=== PATIENT | male | born 1960 | race Caucasian/White ===

== ENCOUNTER 2022-10-28 15:15 | Emergency (ER) | payer OTHER ==
[~2022-10-28] VITALS: Ht 175.3 cm; Wt 139.0 kg
[2022-10-28] MEDS ORDERED: MORPHINE SULFATE INJ 2 MG/ml SYRG IM ONE (16:15)
[2022-10-28] MEDS ORDERED: ONDANSETRON ODT 4 MG TAB PO ONE (16:15)
[2022-10-28] MEDS ORDERED: TRAM-297 PO (16:23)
[2022-10-28] MEDS ORDERED: BACL10TA PO (16:23)
[2022-10-28 19:06] VITALS: BP 110/71
== END 2022-10-28 19:09 | disposition home or self-care (01) ==
LOC: ER 15:15
DX: G89.29 Other chronic pain (principal); M54.59 Other low back pain; J44.9 Chronic obstructive pulmonary disease, unspecified; E11.9 Type 2 diabetes mellitus without complications; I10 Essential (primary) hypertension
CPT/HCPCS: 96372; 99283; J2270; Q0162

== ENCOUNTER 2022-12-22 06:51 | Inpatient (IN) | payer OTHER ==
[~2022-12-22] VITALS: Ht 175.3 cm; Wt 125.0 kg
[~2022-12-22 06:51] MED LIST: BACL10TA PO; TRAM-297 PO
[2022-12-22 07:52] LABS: Basophils # (auto) 0 10 ^3/uL (0-0.2); Basophils % (auto) 0.2 % (0.0-2.0); Eosinophils # (auto) 0.3 10 ^3/uL (0-0.8); Hematocrit 36.5 % (41.0-53.0); Hemoglobin 11.6 g/dL (13.5-17.5); Lymphocytes # (auto) 4.5 10 ^3/uL (0.4-5.4); Lymphocytes % (auto) 32.5 % (10.0-50.0); Mean Corpuscular Hemoglobin 27.4 pg (28.0-32.0); Mean Corpuscular Hgb Conc. 31.8 g/dL (32.0-36.0); Monocytes # (auto) 0.7 10 ^3/uL (0-1.3); Monocytes % (auto) 5.1 % (0.0-12.0); Neutrophils # (auto) 8.3 10 ^3/uL (1.6-8.6); Neutrophils % (auto) 60.2 % (37.0-80.0); Red Blood Cells 4.25 10^6/uL (4.5-5.90); Red Cell Distribution Width 17.2 % (11.8-14.3); White Blood Cell 13.7 10^3/uL (4.4-10.8)
[2022-12-22 08:02] LABS: Albumin 2.8 g/dL (3.4-5.0); Calcium 9.3 mg/dL (8.5-10.1); Magnesium 2.2 mg/dL (1.6-2.6); Potassium 3.5 mmol/L (3.5-5.1)
[2022-12-22 08:05] LABS: BUN/Creatinine Ratio 16.2 (10.0-20.0); Bilirubin, Total 0.4 mg/dL (0.2-1.0); Total Protein 8.2 g/dL (6.4-8.2)
[2022-12-22 08:35] LABS: INR 1.06 (0.9-1.15); Partial Thromboplastin Time 28.6 SEC (24.5-34.5)
[2022-12-22] MEDS ORDERED: SALINE 0.65 % NASAL SPRAY 45ML BOTTLE EACHNOSTRI ONE (09:15)
[2022-12-22] MEDS ORDERED: ASPirin 325 MG TAB PO ONE (09:45)
[2022-12-22 10:37] LABS: Urine Bacteria FEW /hpf (None Seen); Urine Blood Negative /uL (Negative); Urine Specific Gravity 1.013 (1.001-1.035); Urine WBC 32 /hpf (0 - 3)
[2022-12-22 10:53] LABS: Alcohol, Urine < 3.0 mg/dL (0-10); Barbiturate Scree,Urine NEGATIVE (NEGATIVE); Cannabinoid Screen, Urine POSITIVE (NEGATIVE)
[2022-12-22 11:00] LABS: Amphetamine Screen, Urine NEGATIVE (NEGATIVE); Benzodiazephine Screen, Urine NEGATIVE (NEGATIVE); Cocaine Screen, Urine NEGATIVE (NEGATIVE); Opiate Scree,Urine NEGATIVE (NEGATIVE); Phencyclidine Screen, Urine NEGATIVE (NEGATIVE)
[2022-12-22] MEDS ORDERED: ATORVASTATIN 20 MG TAB PO ONE (16:15)
[2022-12-22] MEDS ORDERED: DEXTROSE (50%) 50ML SYRG IV PRN (16:15)
[2022-12-22] MEDS ORDERED: LORazepam 2MG/ML-1ML VIAL IV ONE (16:15)
[2022-12-22] MEDS: InsuLIN REG 1unit/0.01ml Soln (100units/ml) SC SCH ×2 (17:03→22:12)
[2022-12-22] MEDS: ACCU-CHEK COMFORT CURVE STRIP VI SCH ×2 (17:13→22:07)
[2022-12-22] MEDS ORDERED: NITROGLYCERIN 0.4 MG SL TAB SL PRN (18:30)
[2022-12-22] MEDS ORDERED: MORPHINE SULFATE INJ 2 MG/ml SYRG IV PRN (18:30)
[2022-12-22] MEDS ORDERED: DOCUSATE SOD 100 MG CAP PO PRN (18:30)
[2022-12-22] MEDS ORDERED: ACETAMINOPHEN 325 MG TAB PO PRN (18:30)
[2022-12-22] MEDS: SODIUM CHLORIDE 0.9% 1,000 ML IV SCH (21:15)
[2022-12-22 22:06] LABS: Cholesterol 116 mg/dL (< 200)
[2022-12-22 22:10] LABS: HDL Cholesterol 37 mg/dL (40-59); LDL Cholesterol 70 mg/dL (< 100); Triglycerides 77 mg/dL (< 150)
[2022-12-22] MEDS: ATORVASTATIN 20 MG TAB PO SCH (22:11)
[2022-12-23] MEDS: ACCU-CHEK COMFORT CURVE STRIP VI SCH ×8 (06:00→22:00)
[2022-12-23] MEDS: InsuLIN REG 1unit/0.01ml Soln (100units/ml) SC SCH ×4 (06:45→21:50)
[2022-12-23] MEDS: SODIUM CHLORIDE 0.9% 1,000 ML IV SCH (08:48)
[2022-12-23] MEDS: ENOXAPARIN SOD 40 MG/0.4 ML SYRINGE SC SCH (10:12)
[2022-12-23] MEDS: ASPirin 81 mg TAB PO SCH (10:12)
[2022-12-23 14:09] VITALS: BP 128/59
[2022-12-23] MEDS ORDERED: ASPI-325 PO (14:09)
[2022-12-23] MEDS ORDERED: ATOR20TA50 PO (14:09)
[2022-12-23] MEDS ORDERED: ENO40SY SC (14:09)
[2022-12-23] MEDS ORDERED: INSREGI SC (14:09)
[2022-12-23] MEDS ORDERED: ATO40T PO (16:23)
[2022-12-23] MEDS ORDERED: ASPI-543 PO (16:23)
[2022-12-23] MEDS ORDERED: TAMS0.4C36 PO (16:24)
[2022-12-23] MEDS ORDERED: INSU70IN3 SC (16:24)
[2022-12-23] MEDS ORDERED: LOSA100T25 (16:25)
[2022-12-23] MEDS ORDERED: GABA-1250 PO (16:25)
[2022-12-23 16:39] VITALS: BP 128/59
[2022-12-23 17:00] VITALS: BP 104/57
[2022-12-23] MEDS ORDERED: FUROSEMIDE 40 MG/4 ML VIAL IV ONE (17:45)
[2022-12-23] MEDS: ATORVASTATIN 20 MG TAB PO SCH (21:20)
[2022-12-23 23:15] VITALS: BP 159/95
[2022-12-23] MEDS ORDERED: HALOPERIDOL LACTATE 5 MG/ML INJ VIAL IM ONE (23:30)
[2022-12-23] MEDS ORDERED: ONDANSETRON HCL 4 MG/2 ML VIAL IV PRN (23:54)
[2022-12-24] VITALS (19 sets, daily range): BP systolic 117–168; BP diastolic 34–102
[2022-12-24] MEDS: SODIUM CHLORIDE 0.9% 1,000 ML IV SCH ×2 (00:14→13:24)
[2022-12-24] MEDS: MORPHINE SULFATE INJ 2 MG/ml SYRG IV PRN ×4 (01:55→22:11)
[2022-12-24] MEDS: ACCU-CHEK COMFORT CURVE STRIP VI SCH ×9 (05:37→23:27)
[2022-12-24] MEDS: InsuLIN REG 1unit/0.01ml Soln (100units/ml) SC SCH ×4 (06:15→21:57)
[2022-12-24] MEDS: ASPirin 81 mg TAB PO SCH (10:00)
[2022-12-24] MEDS: ENOXAPARIN SOD 40 MG/0.4 ML SYRINGE SC SCH ×2 (10:39→21:28)
[2022-12-24] MEDS ORDERED: LORazepam 2MG/ML-1ML VIAL IV ONE (12:00)
[2022-12-24 13:14] LABS: Basophils # (auto) 0.1 10 ^3/uL (0-0.2); Basophils % (auto) 0.5 % (0.0-2.0); Eosinophils # (auto) 0 10 ^3/uL (0-0.8); Hematocrit 37.5 % (41.0-53.0); Lymphocytes # (auto) 2.7 10 ^3/uL (0.4-5.4); Monocytes # (auto) 0.6 10 ^3/uL (0-1.3); Monocytes % (auto) 5.1 % (0.0-12.0); Red Blood Cells 4.43 10^6/uL (4.5-5.90)
[2022-12-24 13:16] LABS: Eosinophils % (auto) 0.2 % (0.0-7.0); Hemoglobin 12.5 g/dL (13.5-17.5); Lymphocytes % (auto) 22.2 % (10.0-50.0); Mean Corpuscular Hemoglobin 28.1 pg (28.0-32.0); Mean Corpuscular Hgb Conc. 33.2 g/dL (32.0-36.0); Mean Corpuscular Volume 84.6 fL (80.0-100.0); Neutrophils # (auto) 8.7 10 ^3/uL (1.6-8.6); Red Cell Distribution Width 17.2 % (11.8-14.3)
[2022-12-24 13:46] LABS: Albumin 2.7 g/dL (3.4-5.0); Calcium 8.9 mg/dL (8.5-10.1); Potassium 3.7 mmol/L (3.5-5.1)
[2022-12-24 13:49] LABS: BUN/Creatinine Ratio 10.9 (10.0-20.0); Bilirubin, Total 0.4 mg/dL (0.2-1.0); Total Protein 8.3 g/dL (6.4-8.2)
[2022-12-24] MEDS: ATORVASTATIN 20 MG TAB PO SCH ×2 (21:28→21:48)
[2022-12-24] MEDS: hydrALAZINE HCL 20 MG/ML VL IV PRN (21:29)
[2022-12-25] VITALS (19 sets, daily range): BP systolic 126–168; BP diastolic 40–82
[2022-12-25] MEDS: SODIUM CHLORIDE 0.9% 1,000 ML IV SCH ×2 (03:42→11:30)
[2022-12-25] MEDS: ACCU-CHEK COMFORT CURVE STRIP VI SCH ×8 (05:12→23:45)
[2022-12-25] MEDS: InsuLIN REG 1unit/0.01ml Soln (100units/ml) SC SCH ×4 (05:16→22:48)
[2022-12-25] MEDS: hydrALAZINE HCL 20 MG/ML VL IV PRN (06:37)
[2022-12-25] MEDS: ENOXAPARIN SOD 40 MG/0.4 ML SYRINGE SC SCH ×2 (10:00→22:41)
[2022-12-25] MEDS: ASPirin 81 mg TAB PO SCH (10:00)
[2022-12-25] MEDS ORDERED: fentaNYL Drip 2500mCg/250mlNS 0 ML IV ONE (11:01)
[2022-12-25] MEDS ORDERED: fentaNYL CITRATE 100 MCG/2 ML VL ONE (11:02)
[2022-12-25] MEDS ORDERED: MIDAZOLAM HCL 2MG/2ML 2ml VIAL (1mg/ml) ONE (11:03)
[2022-12-25] MEDS ORDERED: CLOP75TA28 PO (12:44)
[2022-12-25] MEDS ORDERED: NALOXONE HCL 0.4 MG/ML VIAL IM ONE (13:00)
[2022-12-25] MEDS ORDERED: NALOXONE HCL 0.4 MG/ML VIAL ONE (13:15)
[2022-12-25] MEDS: ATORVASTATIN 20 MG TAB PO SCH (22:00)
[2022-12-26] VITALS (17 sets, daily range): BP systolic 104–154; BP diastolic 26–73
[2022-12-26 04:41] LABS: Basophils # (auto) 0.1 10 ^3/uL (0-0.2); Basophils % (auto) 0.6 % (0.0-2.0); Eosinophils # (auto) 0.1 10 ^3/uL (0-0.8); Eosinophils % (auto) 1.2 % (0.0-7.0); Hematocrit 40.3 % (41.0-53.0); Lymphocytes # (auto) 2.7 10 ^3/uL (0.4-5.4); Lymphocytes % (auto) 23.8 % (10.0-50.0); Mean Corpuscular Hemoglobin 27.2 pg (28.0-32.0); Mean Corpuscular Hgb Conc. 32.1 g/dL (32.0-36.0); Mean Corpuscular Volume 84.7 fL (80.0-100.0); Monocytes % (auto) 8.5 % (0.0-12.0); Neutrophils # (auto) 7.6 10 ^3/uL (1.6-8.6); Neutrophils % (auto) 65.9 % (37.0-80.0); Nucleated Red Blood Cells % 0.1 %; Red Blood Cells 4.76 10^6/uL (4.5-5.90); Red Cell Distribution Width 16.8 % (11.8-14.3); White Blood Cell 11.5 10^3/uL (4.4-10.8)
[2022-12-26 05:03] LABS: Potassium 3.4 mmol/L (3.5-5.1)
[2022-12-26 05:08] LABS: Albumin 2.7 g/dL (3.4-5.0)
[2022-12-26 05:10] LABS: Bilirubin, Total 0.4 mg/dL (0.2-1.0)
[2022-12-26] MEDS: ACCU-CHEK COMFORT CURVE STRIP VI SCH ×5 (06:00→17:12)
[2022-12-26] MEDS: InsuLIN REG 1unit/0.01ml Soln (100units/ml) SC SCH ×3 (06:35→17:22)
[2022-12-26] MEDS ORDERED: POTASSIUM CHL 20 Meq TABLET PO ONE (07:00)
[2022-12-26] MEDS ORDERED: LISINOPRIL 10 MG TAB PO SCH (10:00)
[2022-12-26] MEDS ORDERED: METOPROLOL TARTRATE 50 MG TAB PO SCH (10:00)
[2022-12-26] MEDS ORDERED: CLOPIDOGREL BISULFATE 75 MG TAB PO SCH (10:00)
[2022-12-26] MEDS: ASPirin 81 mg TAB PO SCH (11:47)
== END 2022-12-26 18:39 | DRG 65 ==
LOC: ER 06:51 → TELE 18:25 → TELE-WESTW 12-23 13:38 → DOU IN ICU 12-23 23:21 → OBSVTOIN 12-23 23:30
PROVIDERS: ADMIT Hospitalist; ATTEND Hospitalist
PROC: B246ZZ4 Ultrasonography of Right and Left Heart, Transesophageal (ICD-10-PCS; principal; 2022-12-25)
DX: I63.413 Cerebral infarction due to embolism of bilateral middle cerebral arteries (principal); G81.94 Hemiplegia, unspecified affecting left nondominant side; Z68.42 Body mass index [BMI] 45.0-49.9, adult; E11.9 Type 2 diabetes mellitus without complications; R29.702 NIHSS score 2; E66.01 Morbid (severe) obesity due to excess calories; E78.5 Hyperlipidemia, unspecified; J44.9 Chronic obstructive pulmonary disease, unspecified; I10 Essential (primary) hypertension; R47.01 Aphasia; N40.0 Benign prostatic hyperplasia without lower urinary tract symptoms; Z79.899 Other long term (current) drug therapy; F12.929 Cannabis use, unspecified with intoxication, unspecified
CPT/HCPCS: 36415; 36600; 70450; 70496; 70551; 71045; 80053; 80061; 80307; 81001; 82805; 82962; 83036; 83735; 83880; 84443; 84484; 85025; 85379; 85610; 85730; 87081; 92523; 92610; 93005; 93306; 93312; 93970; 95819; 97110; 97163; 97530; G0378; J1815; J2250; J2405; J7060